=== PATIENT | female | born 1965 | race Caucasian/White ===

== ENCOUNTER 2016-12-17 08:15 | Outpatient (CLI) | payer MEDICARE, BC ==
[~2016-12-17 08:15] MED LIST: ASPI81TA2 PO; ATOR80TA PO; CLOP75TA2 PO; ESCI10TA PO; INSU100C10 SQ; INSU100C7 SQ; LISI10TA5 PO; METO25TA3 PO; PANT40TA2 PO; PREG100C PO; TEMA30CA5 PO
== END 2016-12-17 23:59 | disposition home or self-care (01) ==
LOC: WOU 08:15
PROVIDERS: ATTEND Podiatrist Foot & Ankle Surgery
DX: S93.124A Dislocation of metatarsophalangeal joint of right lesser toe(s), initial encounter (principal); V81.6XXA Occupant of railway train or railway vehicle injured by fall from railway train or railway vehicle, initial encounter; Y92.815 Train as the place of occurrence of the external cause; Z89.411 Acquired absence of right great toe; E10.42 Type 1 diabetes mellitus with diabetic polyneuropathy
CPT/HCPCS: G0463

== ENCOUNTER 2017-05-06 09:39 | Outpatient (CLI) | payer MEDICARE, BC | END 2017-05-06 23:59 | disposition home or self-care (01) | LOC: WOU 09:39 | PROVIDERS: ATTEND Podiatrist Foot & Ankle Surgery | DX: Z09 Encounter for follow-up examination after completed treatment for conditions other than malignant neoplasm (principal); E10.41 Type 1 diabetes mellitus with diabetic mononeuropathy; Z89.411 Acquired absence of right great toe; L60.3 Nail dystrophy | CPT/HCPCS: G0463 ==

== ENCOUNTER 2017-08-08 09:35 | Outpatient (CLI) | payer MEDICARE, BC | END 2017-08-08 23:59 | disposition home or self-care (01) | LOC: WOU 09:35 | PROVIDERS: ATTEND Podiatrist Foot & Ankle Surgery | DX: Z09 Encounter for follow-up examination after completed treatment for conditions other than malignant neoplasm (principal); Z89.411 Acquired absence of right great toe; E10.41 Type 1 diabetes mellitus with diabetic mononeuropathy; L60.3 Nail dystrophy; B35.1 Tinea unguium; I10 Essential (primary) hypertension | CPT/HCPCS: G0463 ==

== ENCOUNTER 2017-11-07 09:43 | Outpatient (CLI) | payer MEDICARE, BC | END 2017-11-07 23:59 | disposition home or self-care (01) | LOC: WOU 09:43 | PROVIDERS: ATTEND Podiatrist Foot & Ankle Surgery | DX: E10.41 Type 1 diabetes mellitus with diabetic mononeuropathy (principal); L60.3 Nail dystrophy; Z89.411 Acquired absence of right great toe | CPT/HCPCS: G0463 ==

== ENCOUNTER 2017-11-11 12:37 | Outpatient (CLI) | payer MEDICARE, BC ==
[~2017-11-11 12:37] MED LIST changes: +ASPI-1169 PO; -ASPI81TA2 PO; +CLOP75TA15 PO; -CLOP75TA2 PO
== END 2017-11-11 23:59 | disposition home or self-care (01) ==
LOC: WOU 12:37
PROVIDERS: ATTEND Surgery
DX: E10.41 Type 1 diabetes mellitus with diabetic mononeuropathy (principal); M79.645 Pain in left finger(s); Z89.411 Acquired absence of right great toe; L60.3 Nail dystrophy; I10 Essential (primary) hypertension
CPT/HCPCS: G0463

== ENCOUNTER 2017-12-05 11:06 | Outpatient (CLI) | payer MEDICARE, BC | END 2017-12-05 23:59 | disposition home or self-care (01) | LOC: WOU 11:06 | PROVIDERS: ATTEND Surgery | DX: M79.645 Pain in left finger(s) (principal); I10 Essential (primary) hypertension; E10.41 Type 1 diabetes mellitus with diabetic mononeuropathy; Z89.411 Acquired absence of right great toe | CPT/HCPCS: G0463 ==

== ENCOUNTER 2018-02-10 09:44 | Outpatient (CLI) | payer MEDICARE, BC | END 2018-02-10 23:59 | disposition home or self-care (01) | LOC: WOU 09:44 | PROVIDERS: ATTEND Podiatrist Foot & Ankle Surgery | DX: E10.41 Type 1 diabetes mellitus with diabetic mononeuropathy (principal); L60.3 Nail dystrophy; Z89.411 Acquired absence of right great toe; I10 Essential (primary) hypertension | CPT/HCPCS: G0463 ==

== ENCOUNTER 2018-05-12 09:55 | Outpatient (CLI) | payer MEDICARE, BC | END 2018-05-12 23:59 | disposition home or self-care (01) | LOC: WOU 09:55 | PROVIDERS: ATTEND Podiatrist Foot & Ankle Surgery | DX: E10.41 Type 1 diabetes mellitus with diabetic mononeuropathy (principal); Z89.411 Acquired absence of right great toe; L60.3 Nail dystrophy; I10 Essential (primary) hypertension; Z86.31 Personal history of diabetic foot ulcer | CPT/HCPCS: G0463 ==

== ENCOUNTER 2018-08-14 13:34 | Outpatient (CLI) | payer MEDICARE, BC | END 2018-08-14 23:59 | disposition home or self-care (01) | LOC: WOU 13:34 | PROVIDERS: ATTEND Podiatrist Foot & Ankle Surgery | DX: E10.40 Type 1 diabetes mellitus with diabetic neuropathy, unspecified (principal); Z89.411 Acquired absence of right great toe; Z91.81 History of falling; Z98.41 Cataract extraction status, right eye; I10 Essential (primary) hypertension | CPT/HCPCS: G0463; Z7610 ==

== ENCOUNTER 2018-11-13 10:50 | Outpatient (CLI) | payer MEDICARE, BC | END 2018-11-13 23:59 | disposition home or self-care (01) | LOC: WOU 10:50 | PROVIDERS: ATTEND Podiatrist Foot & Ankle Surgery | DX: E10.40 Type 1 diabetes mellitus with diabetic neuropathy, unspecified (principal); Z89.411 Acquired absence of right great toe; Z91.81 History of falling; I10 Essential (primary) hypertension | CPT/HCPCS: G0463 ==

== ENCOUNTER 2018-12-22 11:27 | Outpatient (CLI) | payer MEDICARE, BC | END 2018-12-22 23:59 | disposition home or self-care (01) | LOC: WOU 11:27 | PROVIDERS: ATTEND Podiatrist Foot & Ankle Surgery | DX: E10.621 Type 1 diabetes mellitus with foot ulcer (principal); L97.512 Non-pressure chronic ulcer of other part of right foot with fat layer exposed; E10.40 Type 1 diabetes mellitus with diabetic neuropathy, unspecified; Z89.411 Acquired absence of right great toe; Z91.81 History of falling | CPT/HCPCS: 11042; A6402 ==

== ENCOUNTER 2018-12-29 08:00 | Outpatient (CLI) | payer MEDICARE, BC | END 2018-12-29 23:59 | disposition home or self-care (01) | LOC: WOU 08:00 | PROVIDERS: ATTEND Podiatrist Foot & Ankle Surgery | DX: E10.621 Type 1 diabetes mellitus with foot ulcer (principal); L97.511 Non-pressure chronic ulcer of other part of right foot limited to breakdown of skin; E10.40 Type 1 diabetes mellitus with diabetic neuropathy, unspecified; Z89.411 Acquired absence of right great toe; Z91.81 History of falling; Z98.42 Cataract extraction status, left eye; Z98.41 Cataract extraction status, right eye | CPT/HCPCS: A6402; G0463; Z7610 ==

== ENCOUNTER 2019-01-05 08:00 | Outpatient (CLI) | payer MEDICARE, BC | END 2019-01-05 23:59 | disposition home or self-care (01) | LOC: WOU 08:00 | PROVIDERS: ATTEND Podiatrist Foot & Ankle Surgery | DX: Z09 Encounter for follow-up examination after completed treatment for conditions other than malignant neoplasm (principal); Z86.31 Personal history of diabetic foot ulcer; E10.40 Type 1 diabetes mellitus with diabetic neuropathy, unspecified; Z91.81 History of falling; Z89.411 Acquired absence of right great toe | CPT/HCPCS: G0463 ==

== ENCOUNTER 2019-03-12 11:15 | Outpatient (CLI) | payer MEDICARE, BC | END 2019-03-12 23:59 | disposition home or self-care (01) | LOC: WOU 11:15 | PROVIDERS: ATTEND Podiatrist Foot & Ankle Surgery | DX: Z51.89 Encounter for other specified aftercare (principal); E10.42 Type 1 diabetes mellitus with diabetic polyneuropathy; Z79.4 Long term (current) use of insulin; Z91.81 History of falling; R26.81 Unsteadiness on feet; Z89.411 Acquired absence of right great toe; Z98.42 Cataract extraction status, left eye; Z98.41 Cataract extraction status, right eye; I10 Essential (primary) hypertension | CPT/HCPCS: G0463 ==

== ENCOUNTER 2019-06-18 10:50 | Outpatient (CLI) | payer MEDICARE, BC | END 2019-06-18 23:59 | disposition home or self-care (01) | LOC: WOU 10:50 | PROVIDERS: ATTEND Podiatrist Foot & Ankle Surgery | DX: Z09 Encounter for follow-up examination after completed treatment for conditions other than malignant neoplasm (principal); E10.40 Type 1 diabetes mellitus with diabetic neuropathy, unspecified; Z89.411 Acquired absence of right great toe; Z91.81 History of falling; Z98.42 Cataract extraction status, left eye; Z98.41 Cataract extraction status, right eye; I10 Essential (primary) hypertension; Z86.31 Personal history of diabetic foot ulcer | CPT/HCPCS: G0463 ==

== ENCOUNTER 2019-11-05 09:00 | Outpatient (CLI) | payer MEDICARE, BC | END 2019-11-05 23:59 | disposition home or self-care (01) | LOC: WOU 09:00 | PROVIDERS: ATTEND Podiatrist Foot & Ankle Surgery | DX: Z09 Encounter for follow-up examination after completed treatment for conditions other than malignant neoplasm (principal); E10.40 Type 1 diabetes mellitus with diabetic neuropathy, unspecified; Z86.31 Personal history of diabetic foot ulcer; Z89.411 Acquired absence of right great toe; B35.1 Tinea unguium; Z87.81 Personal history of (healed) traumatic fracture; Z91.81 History of falling; I10 Essential (primary) hypertension; Z98.42 Cataract extraction status, left eye; Z98.41 Cataract extraction status, right eye | CPT/HCPCS: G0463 ==

== ENCOUNTER 2020-02-11 09:50 | Outpatient (CLI) | payer MEDICARE, BC | END 2020-02-11 23:59 | disposition home or self-care (01) | LOC: WOU 09:50 | PROVIDERS: ATTEND Podiatrist Foot & Ankle Surgery | DX: B35.1 Tinea unguium (principal); E10.40 Type 1 diabetes mellitus with diabetic neuropathy, unspecified; Z89.411 Acquired absence of right great toe; Z91.81 History of falling | CPT/HCPCS: G0463 ==

== ENCOUNTER 2020-05-30 08:55 | Outpatient (CLI) | payer MEDICARE, BC | END 2020-05-30 23:59 | disposition home or self-care (01) | LOC: WOU 08:55 | PROVIDERS: ATTEND Podiatrist Foot & Ankle Surgery | DX: S91.115A Laceration without foreign body of left lesser toe(s) without damage to nail, initial encounter (principal); W26.8XXA Contact with other sharp object(s), not elsewhere classified, initial encounter; Y93.89 Activity, other specified; Y92.89 Other specified places as the place of occurrence of the external cause; E10.40 Type 1 diabetes mellitus with diabetic neuropathy, unspecified; B35.1 Tinea unguium; Z89.411 Acquired absence of right great toe; Z91.81 History of falling | CPT/HCPCS: 11042 ==